=== PATIENT | female | born 1970 | race Caucasian/White ===

== ENCOUNTER 2020-10-18 13:33 | Observation (INO) | payer BC ==
[2020-10-18] VITALS (9 sets, daily range): BP systolic 101–115; BP diastolic 50–75; PULSE 57–87; TEMP 98–98.8
[2020-10-18] MEDS ORDERED: MINIVELL TD (15:39)
--- NOTE | 2020-10-18 15:46 | NUR ---
Patient to room [address] Wilson notified of arrival. NPO since 914. INT in place in [facility] from previous hospital. Assessments completed.
--- NOTE | 2020-10-18 16:48 | NUR ---
ADMITTED PT, CONSENT SIGNED ON CHART. IV ABX AND FLUIDS STARTED TO EXISTING 20 G TO [facility].
--- NOTE | 2020-10-18 18:23 | NUR ---
PT TO ROOM 348 PER BED WITH REPORT FROM [facility] @ 6511. PT IS A/O X3, LUNGS CTA, BOWEL SOUNDS HYPO. LAP SITES CDI WITH BANDAIDS OVER INCISIONS. SCDS BILATERALLY. IV TO [facility]. PT DENIES NEEDS AT THIS TIME.
[2020-10-19 03:38] VITALS: BP 116/46; PULSE 63; TEMP 98.5
--- NOTE | 2020-10-19 07:05 | NUR ---
RESTING QUIETLY. NO N/V THIS MORNING. UP INDEPENDENTLY. NO c/o PAIN THIS MORNING.
[2020-10-19 07:18] VITALS: BP 127/54; PULSE 62; TEMP 97.8
[2020-10-19] MEDS ORDERED: ULTRAM 50MG TAB50 MG PO (07:50)
--- NOTE | 2020-10-19 08:46 | NUR ---
rounded. discharge orders obtained. Patient ready to get home. She tolerated breakfast denies nausea. Motrin for pain, prior to discharge. Int dc. We reviewed all dischage instructions. Follow up appt made in [place], she knows to call with any questions or concerns. Zbigniew ambulated out with all belongings. he taking her home.
== END 2020-10-19 08:49 | disposition home or self-care (01) ==
LOC: SURG 13:33
PROVIDERS: ADMIT Surgery
DX: K35.80 Unspecified acute appendicitis (principal); F17.210 Nicotine dependence, cigarettes, uncomplicated
CPT/HCPCS: G0378; G0379; J1885; J2543; J2550; J2704; J3010